=== PATIENT | male | born 1980 | race Caucasian/White ===

== ENCOUNTER 2018-03-12 06:13 | Day surgery (SDC) | payer OTHER ==
[~2018-03-12] VITALS: Ht 167.6 cm; Wt 77.7 kg
[~2018-03-12 06:13] MED LIST: Bupropion HCl150 M2 PO; LAMO100 PO; PROCTOSOL-HC30 GM EXT; TAMSULOSIN HCL0.4 MG PO; Valtrex1000 MG PO
[2018-03-12] MEDS ORDERED: Aspir 8181 MG (06:54)
== END 2018-03-12 11:16 | disposition home or self-care (01) ==
LOC: ORSCSDS 06:13
PROVIDERS: Orthopaedic Surgery
PROC: 0LS14ZZ Reposition Right Shoulder Tendon, Percutaneous Endoscopic Approach (ICD-10-PCS; principal; 2018-03-12 07:30)
PROC: 0LQ14ZZ Repair Right Shoulder Tendon, Percutaneous Endoscopic Approach (ICD-10-PCS; principal; 2018-03-12 07:30)
PROC: 0RNJ4ZZ Release Right Shoulder Joint, Percutaneous Endoscopic Approach (ICD-10-PCS; principal; 2018-03-12 07:30)
DX: M75.121 Complete rotator cuff tear or rupture of right shoulder, not specified as traumatic (principal); M75.21 Bicipital tendinitis, right shoulder; M75.41 Impingement syndrome of right shoulder; Z79.82 Long term (current) use of aspirin
CPT/HCPCS: C1713; J0171; J0690; J1100; J1885; J2250; J2405; J3010; J7120

== ENCOUNTER 2024-06-30 13:36 | Day surgery (SDC) | payer OTHER ==
[~2024-06-30] VITALS: Ht 167.6 cm; Wt 103.9 kg
[~2024-06-30 13:36] MED LIST changes: +Aspir 8181 MG; +Glycopyrrolate 0.2 MG/ML 1MLVIAL ONE; +Lactated Ringer's 1,000 ML IV ONE; +Lidocaine 2% 5 ML SDV ONE; +Lidocaine HCl/Pf 1% 5 ML VIAL ONE; +Ondansetron HCl 2 MG / ML 2ML Vial ONE; +ePHEDrine Sulfate 50 MG/ML 1ML Injection ONE
[2024-06-30] MEDS ORDERED: Lactated Ringer's 1,000 ML IV ONE (14:38)
[2024-06-30] MEDS ORDERED: propofoL 50 ML IV ONE ×2 (14:49→15:24)
[2024-06-30 15:57] VITALS: BP 134/93
== END 2024-06-30 16:10 | disposition home or self-care (01) ==
LOC: ORSCSDS 13:36
PROVIDERS: Specialist
PROC: 0DBN8ZX Excision of Sigmoid Colon, Via Natural or Artificial Opening Endoscopic, Diagnostic (ICD-10-PCS; principal; 2024-06-30 15:15)
PROC: 0DBL8ZX Excision of Transverse Colon, Via Natural or Artificial Opening Endoscopic, Diagnostic (ICD-10-PCS; principal; 2024-06-30 15:15)
DX: Z12.11 Encounter for screening for malignant neoplasm of colon (principal); D12.3 Benign neoplasm of transverse colon; D12.5 Benign neoplasm of sigmoid colon; K64.4 Residual hemorrhoidal skin tags; F41.9 Anxiety disorder, unspecified; E66.9 Obesity, unspecified; Z68.37 Body mass index [BMI] 37.0-37.9, adult; Z79.82 Long term (current) use of aspirin; Z79.899 Other long term (current) drug therapy
CPT/HCPCS: 88305; J2003; J2405; J2704; J7120